=== PATIENT | female | born 1940 | race Caucasian/White ===

== ENCOUNTER 2020-02-13 17:35 | Inpatient (IN) | payer MEDICARE, OTHER ==
[~2020-02-13] VITALS: Ht 165.1 cm; Wt 54.4 kg
[2020-02-13 19:43] LABS: BASOPHILS ABSOLUTE AUTO 0.12 K/mm3 (0.00-0.23); BASOPHILS PERCENT AUTO 1 % (0-2); EOSINOPHILS ABSOLUTE AUTO 0.11 K/mm3 (0.00-0.68); EOSINOPHILS PERCENT AUTO 1 % (0-6); Hematocrit 34.6 % (33.0-51.0); Hemoglobin 11.1 g/dL (11.5-16.0); IMMATURE GRAN ABSOLUTE AUTO 0.08 K/mm3 (0.00-0.10); IMMATURE GRAN PERCENT AUTO 1 % (0-1); LYMPHOCYTES ABSOLUTE AUTO 2.34 K/mm3 (0.84-5.20); LYMPHOCYTES PERCENT AUTO 13 % (21-46); MONOCYTES PERCENT AUTO 11 % (4-13); Mean Corpuscular HGB 29.2 pg (26.0-34.0); Mean Corpuscular HGB Conc 32.1 g/dL (31.5-36.5); Mean Corpuscular Volume 91 fL (80-100); NEUTROPHILS ABSOLUTE AUTO 13.12 K/mm3 (1.96-9.15); NEUTROPHILS PERCENT AUTO 74 % (41-73); RDW Coefficient Variation 14.4 % (11.7-14.2); RDW Standard Deviation 48.1 fL (35.1-46.3); White Blood Cell Count 17.77 K/mm3 (4.00-11.30)
[2020-02-13 19:46] LABS: Platelet Count 36 K/mm3 (150-400)
[2020-02-13 19:51] LABS: International Normalized Ratio 0.97; Prothrombin Time Results 10.4 Sec (9.7-11.5)
[2020-02-13 19:54] LABS: Albumin, Blood 3.2 g/dL (3.4-5.0); Bilirubin, Total 0.4 mg/dL (0.1-1.0); Bun/Creatinine Ratio 28.4 (12.0-20.0); Calcium, Blood 8.8 mg/dL (8.5-10.1); Creatinine, Blood 1.62 mg/dL (0.40-1.00); Globulin, Blood 3.3 g/dL (2.2-4.0); Potassium, Blood 4.9 mmol/L (3.5-5.5); Total Protein, Blood 6.5 g/dL (6.4-8.2)
[2020-02-13] MEDS ORDERED: CYMBALTA60 MG PO (20:04)
[2020-02-13] MEDS ORDERED: NORCO PO (20:04)
[2020-02-13] MEDS ORDERED: GABA100 PO (20:05)
[2020-02-13] MEDS ORDERED: FUROSEMIDE40 MG PO (20:05)
[2020-02-13] MEDS ORDERED: SYNTHROID175 MC1 PO (20:05)
[2020-02-13] MEDS ORDERED: ROPINIROLE HCL0.5 MG PO (20:06)
[2020-02-13] MEDS ORDERED: LANTUS SOL100 UNIT/1 (20:06)
[2020-02-13 21:07] LABS: Thyroid Stimulating Hormone 0.653 uIU/mL (0.360-4.800)
[2020-02-13 22:13] LABS: Source, Urine Catheter
[2020-02-13 22:16] LABS: Bilirubin, Urine Neg (Neg); Blood, Urine 5+ (Neg); Glucose Qualitative, Urine Neg (Neg); Ketones, Urine Neg (Neg); Leukocyte Esterase, Urine Neg (Neg); Nitrite, Urine Neg (Neg); Protein, Urine 1+ (Neg); Specific Gravity, Urine 1.015 (1.003-1.022); Urobilinogen, Urine NORM (Normal)
[2020-02-13 22:19] LABS: Appearance, Urine Clear (Clear); Color, Urine Yellow (P-Yellow)
[2020-02-13 22:25] LABS: Bacteria Few /hpf; Hyaline Casts 0-2 /lpf (0-2); Squamous Epithelial Cells Not Seen /hpf (Few); White Blood Cells, Urine 0-2 /hpf (0-5)
[2020-02-13] MEDS ORDERED: HYDR1TAB94 PO (22:51)
[2020-02-13] MEDS ORDERED: PROMACTA PO (22:52)
[2020-02-13] MEDS ORDERED: BASAGLAR K100 UNIT/1 SC (22:53)
[2020-02-13] MEDS ORDERED: CICLODAN6.6 ML TOP (22:55)
[2020-02-13] MEDS ORDERED: Atarax10 MG PO (22:56)
[2020-02-13] MEDS ORDERED: INSULIN LI100 UNIT/6 SC (22:57)
[2020-02-13] MEDS ORDERED: ALBU90OI INH (22:58)
[2020-02-13] MEDS ORDERED: NITR.4SL SL (22:58)
[2020-02-13] MEDS ORDERED: METO25ER PO (22:59)
[2020-02-13] MEDS ORDERED: ANASTROZOLE1 M1 PO (22:59)
[2020-02-13] MEDS ORDERED: BUDE.25 INH (23:00)
[2020-02-13] MEDS ORDERED: ISODIN20 PO (23:00)
[2020-02-13] MEDS ORDERED: Brovana15 MCG/2 M INH (23:06)
[2020-02-13] MEDS ORDERED: ASCO500 PO (23:07)
[2020-02-14 04:40] LABS: BASOPHILS PERCENT AUTO 1 % (0-2); EOSINOPHILS ABSOLUTE AUTO 0.18 K/mm3 (0.00-0.68); EOSINOPHILS PERCENT AUTO 1 % (0-6); Hematocrit 33.1 % (33.0-51.0); Hemoglobin 10.3 g/dL (11.5-16.0); IMMATURE GRAN ABSOLUTE AUTO 0.05 K/mm3 (0.00-0.10); IMMATURE GRAN PERCENT AUTO 0 % (0-1); LYMPHOCYTES ABSOLUTE AUTO 3.73 K/mm3 (0.84-5.20); LYMPHOCYTES PERCENT AUTO 23 % (21-46); MONOCYTES ABSOLUTE AUTO 2.45 K/mm3 (0.16-1.47); MONOCYTES PERCENT AUTO 15 % (4-13); Mean Corpuscular HGB 28.5 pg (26.0-34.0); Mean Corpuscular HGB Conc 31.1 g/dL (31.5-36.5); Mean Corpuscular Volume 91 fL (80-100); NEUTROPHILS ABSOLUTE AUTO 9.64 K/mm3 (1.96-9.15); NEUTROPHILS PERCENT AUTO 60 % (41-73); RDW Coefficient Variation 14.4 % (11.7-14.2); RDW Standard Deviation 48.7 fL (35.1-46.3); Red Blood Cell Count 3.62 M/mm3 (3.80-5.20); White Blood Cell Count 16.15 K/mm3 (4.00-11.30)
[2020-02-14 04:55] LABS: Platelet Count 33 K/mm3 (150-400)
[2020-02-14 05:01] LABS: Albumin, Blood 3.1 g/dL (3.4-5.0); Albumin/Globulin Ratio 0.9 (0.8-1.8); Bilirubin, Total 0.5 mg/dL (0.1-1.0); Bun/Creatinine Ratio 26.2 (12.0-20.0); Calcium, Blood 8.4 mg/dL (8.5-10.1); Creatinine, Blood 1.72 mg/dL (0.40-1.00); Globulin, Blood 3.3 g/dL (2.2-4.0); Potassium, Blood 4.8 mmol/L (3.5-5.5); Total Protein, Blood 6.4 g/dL (6.4-8.2)
[2020-02-14 05:57] LABS: Influenza A, PCR Negative (NEGATIVE); Influenza B, PCR Negative (NEGATIVE); Resp Syncytial Virus, PCR Negative (NEGATIVE); SARS-Cov-2 (COVID-19) PCR, MMC Negative (NEGATIVE)
--- NOTE | 2020-02-14 07:47 | NUR ---
SHIFT SUMMARY PT NEW ADMIT THIS SHIFT. AAOX4. NPO. DISCOMFORT CONTROLLED WITH 25mcg FENTANYL X2 SINCE ADMISSION. NO NAUSEA/EMESIS. PT VERY DROWSY UPON ARRIVAL TO FLOOR, UNABLE TO COMPLETE ADMISSION HX. LEFT LEG SHORTENED, DENIES N/T BLE, MOVES TOES WELL + CAP REFILL BRISK. URENA CATHETER IN PLACE, DRAINING YELLOW. COVID SWAB COMPLETED THIS MORNING. SURGICAL PACKET ON FRONT OF CHART. ORTHO NOTIFIED OF CONSULT. PT RETURNED TO BED FROM X-RAY AT THIS TIME, RESTING POST PAIN MEDICATION WITH CALL LIGHT IN REACH.
--- NOTE | 2020-02-14 09:38 | NUR ---
SPOKE WITH DR. MARIE AND DIVYA AT ABOUT 0815 CONCERNING PT PLATLET COUNT. SEE NEW ORDERS
--- NOTE | 2020-02-14 12:29 | NUR ---
Patient confirms NPO status and agrees with scheduled surgery. PT HAS A UNIT OF PLATELETS IN BB. SPOKE TO DR STOKES WILL RETRIEVE NEEDED. UPDATED DR DOE REGARDING FINDINGS.
--- NOTE | 2020-02-14 13:55 | NUR ---
02/14/20 1355 Malik Meehan PATIENT ARRIVED TO OR WITH URENA CATH IN PLACE.
--- NOTE | 2020-02-14 16:21 | NUR ---
POST OP: REPORT RECEIVED FROM CLAIRE, LOADER HELPER. PT TO UNIT AT ABOUT 1530. UPON ASSESSMENT PT SEEMS ANXIOUS, IS ALERT ORIENTED TO PERSON AND THAT SHE HAD SURGERY. DISORIENTED TO TIME. PT IS VERY SHAKY, STATES THAT SHAKING IS BASELINE FOR HER. VS TAKEN, HR BOUNCES FROM 90'S TO 120'S TO 130'S. UPON ASCULTATION, HEART SOUNDS ARE IRREGULAR. PT DENIES CP/PRESSURE, DENIES ANY HISTORY OF ARRHYTHMIA. DR. MARIE NOTIFIED OF THIS, SEE NEW ORDERS. SURGICAL SITE WNL. PT COMPLAINED OF 8/10 PAIN, MEDICATED PER EMAR. WILL CTM
[2020-02-14 16:33] LABS: Creatinine, Blood 1.72 mg/dL (0.40-1.00)
[2020-02-14 17:46] LABS: BASOPHILS ABSOLUTE AUTO 0.08 K/mm3 (0.00-0.23); BASOPHILS PERCENT AUTO 1 % (0-2); EOSINOPHILS ABSOLUTE AUTO 0.14 K/mm3 (0.00-0.68); EOSINOPHILS PERCENT AUTO 1 % (0-6); Hematocrit 27.1 % (33.0-51.0); Hemoglobin 8.4 g/dL (11.5-16.0); IMMATURE GRAN ABSOLUTE AUTO 0.07 K/mm3 (0.00-0.10); IMMATURE GRAN PERCENT AUTO 0 % (0-1); LYMPHOCYTES ABSOLUTE AUTO 2.26 K/mm3 (0.84-5.20); LYMPHOCYTES PERCENT AUTO 13 % (21-46); MONOCYTES ABSOLUTE AUTO 2.34 K/mm3 (0.16-1.47); MONOCYTES PERCENT AUTO 14 % (4-13); Mean Corpuscular HGB 29.6 pg (26.0-34.0); Mean Corpuscular Volume 95 fL (80-100); Mean Platelet Volume 12.3 fL (9.1-12.4); NEUTROPHILS ABSOLUTE AUTO 12.46 K/mm3 (1.96-9.15); NEUTROPHILS PERCENT AUTO 72 % (41-73); Platelet Count 60 K/mm3 (150-400); RDW Coefficient Variation 14.4 % (11.7-14.2); RDW Standard Deviation 49.9 fL (35.1-46.3); Red Blood Cell Count 2.84 M/mm3 (3.80-5.20); White Blood Cell Count 17.35 K/mm3 (4.00-11.30)
--- NOTE | 2020-02-14 17:54 | NUR ---
SUMMARY: EKG COMPLETED, SHOWING SINUS TACH. CURRENTLY PT HR RANGES 90-100'S DR. MARIE AWARE. WILL CTM. PT OTHERWISE STABLE, MORE ORIENTED AT THIS TIME. KNOWS WHERE SHE IS AND THAT SHE HAD SURGERY. DOES SEEM FORGETFUL. BED ALARM ON FOR SAFETY. SURGICAL SITE WNL. PT ABLE TO TOLERATE ADA DIET, DENIES N/V. PT IS DROWSY, AND FALLS ASLEEP QUICKLY. AWAKENS EASILY TO VOICE. WILL CTM PT STATUS AND REPORT TO NOC RN.
--- NOTE | 2020-02-15 04:21 | NUR ---
PT WITH DIFFICULTY GETTING SOME OF HER WORDS OUT TONIGHT. PT REPORTED THIS BASELINE STATES SHE SOMETIMES STRUGGLES WITH WORDS AT HOME.PT IS UNABLE TO VERB HOW LONG THIS HAS BEEN GOING ON AT HOME, BUT STATES IT WORSENS INTERMITTENTLY.AT THIS TIME,PT SLOW TO GATHER YEAR OF WHICH I DID NOT NOTICE PRIOR. THIS APPEARS MORE PRONOUNCED AT THIS TIME,I CALLED DR SOTO AND ADVISED OF ABOVE.DR SOTO DCD NORCO AND SUBLIMAZE.TYLENOL FOR PAIN.
[2020-02-15 04:45] LABS: BASOPHILS PERCENT AUTO 1 % (0-2); EOSINOPHILS ABSOLUTE AUTO 0.09 K/mm3 (0.00-0.68); EOSINOPHILS PERCENT AUTO 1 % (0-6); Hematocrit 23.3 % (33.0-51.0); Hemoglobin 7.3 g/dL (11.5-16.0); IMMATURE GRAN ABSOLUTE AUTO 0.09 K/mm3 (0.00-0.10); IMMATURE GRAN PERCENT AUTO 1 % (0-1); LYMPHOCYTES ABSOLUTE AUTO 3.18 K/mm3 (0.84-5.20); LYMPHOCYTES PERCENT AUTO 17 % (21-46); MONOCYTES ABSOLUTE AUTO 2.38 K/mm3 (0.16-1.47); MONOCYTES PERCENT AUTO 13 % (4-13); Mean Corpuscular HGB 29.7 pg (26.0-34.0); Mean Corpuscular HGB Conc 31.3 g/dL (31.5-36.5); Mean Corpuscular Volume 95 fL (80-100); NEUTROPHILS ABSOLUTE AUTO 12.97 K/mm3 (1.96-9.15); NEUTROPHILS PERCENT AUTO 69 % (41-73); RDW Coefficient Variation 14.3 % (11.7-14.2); RDW Standard Deviation 49.2 fL (35.1-46.3); Red Blood Cell Count 2.46 M/mm3 (3.80-5.20); White Blood Cell Count 18.81 K/mm3 (4.00-11.30)
[2020-02-15 04:57] LABS: Platelet Count 28 K/mm3 (150-400)
[2020-02-15 05:08] LABS: Albumin, Blood 2.7 g/dL (3.4-5.0); Albumin/Globulin Ratio 0.9 (0.8-1.8); Bilirubin, Total 0.5 mg/dL (0.1-1.0); Calcium, Blood 7.6 mg/dL (8.5-10.1); Creatinine, Blood 1.83 mg/dL (0.40-1.00); Globulin, Blood 2.9 g/dL (2.2-4.0); Potassium, Blood 5.2 mmol/L (3.5-5.5); Total Protein, Blood 5.6 g/dL (6.4-8.2)
--- NOTE | 2020-02-15 07:42 | NUR ---
DR. MARIE MADE AWARE OF PT HGB AND PLATELET COUNT THIS MORNING. SEE NEW ORDERS.
[2020-02-15 12:45] LABS: BASOPHILS PERCENT AUTO 1 % (0-2); EOSINOPHILS ABSOLUTE AUTO 0.27 K/mm3 (0.00-0.68); EOSINOPHILS PERCENT AUTO 1 % (0-6); Hematocrit 25.9 % (33.0-51.0); Hemoglobin 8.2 g/dL (11.5-16.0); IMMATURE GRAN ABSOLUTE AUTO 0.09 K/mm3 (0.00-0.10); IMMATURE GRAN PERCENT AUTO 1 % (0-1); LYMPHOCYTES ABSOLUTE AUTO 3.22 K/mm3 (0.84-5.20); LYMPHOCYTES PERCENT AUTO 17 % (21-46); MONOCYTES ABSOLUTE AUTO 2.48 K/mm3 (0.16-1.47); MONOCYTES PERCENT AUTO 13 % (4-13); Mean Corpuscular HGB 28.5 pg (26.0-34.0); Mean Corpuscular HGB Conc 31.7 g/dL (31.5-36.5); NEUTROPHILS ABSOLUTE AUTO 12.57 K/mm3 (1.96-9.15); NEUTROPHILS PERCENT AUTO 67 % (41-73); RDW Coefficient Variation 16.3 % (11.7-14.2); RDW Standard Deviation 53.8 fL (35.1-46.3); Red Blood Cell Count 2.88 M/mm3 (3.80-5.20); White Blood Cell Count 18.73 K/mm3 (4.00-11.30)
[2020-02-15 12:55] LABS: Mean Corpuscular Volume 90 fL (80-100)
[2020-02-15 12:57] LABS: Platelet Count 26 K/mm3 (150-400)
--- NOTE | 2020-02-15 16:39 | NUR ---
SUMMARY: PT IS POD1 GAMMA NAILING OF L HIP. VSS, A/O X3. FORGETFUL AT TIMES AND NEEDS REORIENTED, SEEMS TO HAVE EXPRESSIVE APHASIA AT TIMES. FOLLOWS COMMANDS WELL. SURGICAL SITE WNL. PT RECIEVED 1 UNIT RBC'S TODAY, TOLERATED WELL. PT ABLE TO WORK WITH PHYSICAL THERAPY AND SAT UP IN RECLINER. PT VERY PAINFUL, SEE NEW ORDER. TELE STABLE, NO ACUTE CONCERNS AT THIS TIME. BED ALARM FOR SAFETY. WILL MONITOR AND REPORT TO SARA RN.
[2020-02-16 04:40] LABS: BASOPHILS ABSOLUTE AUTO 0.03 K/mm3 (0.00-0.23); BASOPHILS PERCENT AUTO 0 % (0-2); EOSINOPHILS ABSOLUTE AUTO 0.39 K/mm3 (0.00-0.68); EOSINOPHILS PERCENT AUTO 2 % (0-6); Hematocrit 23.7 % (33.0-51.0); Hemoglobin 7.5 g/dL (11.5-16.0); IMMATURE GRAN ABSOLUTE AUTO 0.08 K/mm3 (0.00-0.10); IMMATURE GRAN PERCENT AUTO 0 % (0-1); LYMPHOCYTES ABSOLUTE AUTO 2.79 K/mm3 (0.84-5.20); LYMPHOCYTES PERCENT AUTO 15 % (21-46); MONOCYTES ABSOLUTE AUTO 2.92 K/mm3 (0.16-1.47); MONOCYTES PERCENT AUTO 16 % (4-13); Mean Corpuscular HGB 28.5 pg (26.0-34.0); Mean Corpuscular HGB Conc 31.6 g/dL (31.5-36.5); Mean Corpuscular Volume 90 fL (80-100); NEUTROPHILS ABSOLUTE AUTO 12.32 K/mm3 (1.96-9.15); NEUTROPHILS PERCENT AUTO 66 % (41-73); RDW Coefficient Variation 16.4 % (11.7-14.2); RDW Standard Deviation 54.4 fL (35.1-46.3); Red Blood Cell Count 2.63 M/mm3 (3.80-5.20); White Blood Cell Count 18.53 K/mm3 (4.00-11.30)
[2020-02-16 04:47] LABS: Platelet Count 13 K/mm3 (150-400)
[2020-02-16 04:56] LABS: Bun/Creatinine Ratio 25.3 (12.0-20.0); Calcium, Blood 7.5 mg/dL (8.5-10.1); Creatinine, Blood 1.74 mg/dL (0.40-1.00); Potassium, Blood 4.3 mmol/L (3.5-5.5)
--- NOTE | 2020-02-16 07:35 | NUR ---
SUMMARY PT WITH CRITICAL PLATELETS THIS AM. EVEN LOWER THAN PRIOR CRITICAL. NOTIFIED DR SOTO.FOLLOW UP LABS AT 1000.
[2020-02-16 15:07] LABS: Hemoglobin 7.2 g/dL (11.5-16.0); Mean Corpuscular HGB 29.8 pg (26.0-34.0); Mean Corpuscular HGB Conc 32.7 g/dL (31.5-36.5); Mean Corpuscular Volume 91 fL (80-100); Mean Platelet Volume 12.5 fL (9.1-12.4); Platelet Count 61 K/mm3 (150-400); RDW Coefficient Variation 16.1 % (11.7-14.2); RDW Standard Deviation 53.4 fL (35.1-46.3); Red Blood Cell Count 2.42 M/mm3 (3.80-5.20); White Blood Cell Count 18.46 K/mm3 (4.00-11.30)
[2020-02-16 15:42] LABS: BASOPHILS PERCENT MAN 0 % (0-2); EOSINOPHILS ABSOLUTE MAN 0.55 K/mm3 (0.00-0.68); EOSINOPHILS PERCENT MAN 3 % (0-6); LYMPHOCYTES ABSOLUTE MAN 4.43 K/mm3 (0.84-5.20); LYMPHOCYTES PERCENT MAN 24 % (21-46); MONOCYTES ABSOLUTE MAN 2.03 K/mm3 (0.16-1.47); MONOCYTES PERCENT MAN 11 % (4-13); NEUTROPHILS ABSOLUTE MAN 11.44 K/mm3 (1.96-9.15); SEG NEUTROPHILS PERCENT MAN 62 % (41-73); TOTAL CELLS COUNTED 100
--- NOTE | 2020-02-16 17:39 | NUR ---
pt with tremors of upper extremities, denies any visual hallucinations at this time and states she does not see spiders on the ceiling. pt fearful and becomes anxious with attempts to reposition in bed and get oob. verbalized with pt deep breathing and relaxing shoulders with movement and pt becomes less anxious. pt dozes at times. pt voided after qiuroga removed
[2020-02-16 21:11] LABS: Hematocrit 23.2 % (33.0-51.0); Hemoglobin 7.4 g/dL (11.5-16.0)
[2020-02-17 04:43] LABS: BASOPHILS ABSOLUTE AUTO 0.04 K/mm3 (0.00-0.23); BASOPHILS PERCENT AUTO 0 % (0-2); EOSINOPHILS ABSOLUTE AUTO 0.59 K/mm3 (0.00-0.68); EOSINOPHILS PERCENT AUTO 3 % (0-6); Hematocrit 22.9 % (33.0-51.0); Hemoglobin 7.3 g/dL (11.5-16.0); IMMATURE GRAN ABSOLUTE AUTO 0.09 K/mm3 (0.00-0.10); IMMATURE GRAN PERCENT AUTO 1 % (0-1); LYMPHOCYTES ABSOLUTE AUTO 3.13 K/mm3 (0.84-5.20); LYMPHOCYTES PERCENT AUTO 17 % (21-46); MONOCYTES ABSOLUTE AUTO 2.55 K/mm3 (0.16-1.47); MONOCYTES PERCENT AUTO 14 % (4-13); Mean Corpuscular HGB 28.6 pg (26.0-34.0); Mean Corpuscular HGB Conc 31.9 g/dL (31.5-36.5); Mean Corpuscular Volume 90 fL (80-100); NEUTROPHILS ABSOLUTE AUTO 12.35 K/mm3 (1.96-9.15); NEUTROPHILS PERCENT AUTO 66 % (41-73); RDW Coefficient Variation 15.8 % (11.7-14.2); RDW Standard Deviation 52.5 fL (35.1-46.3); Red Blood Cell Count 2.55 M/mm3 (3.80-5.20); White Blood Cell Count 18.75 K/mm3 (4.00-11.30)
[2020-02-17 04:48] LABS: Mean Platelet Volume 13.5 fL (9.1-12.4)
--- NOTE | 2020-02-17 04:49 | NUR ---
SHIFT SUMMARY PT HAS BEEN ALERT, SEEMINGLY SLIGHTLY CONFUSED AT TIMES. BED ALARM ON. USING O2 NC TO MAINTAIN O2 SAT ABOVE 92%. TELE IN PLACE OVERNIGHT; HAS BEEN SR PER TUBE FILLER. IV FLUIDS INFUSING PER ORDERS OVERNIGHT. TAKING NORCO FOR PAIN. DRESSINGS TO L HIP CDI. TOLERATING PO INTAKE W/O NAUSEA AND VOIDING. PT RESTING WITH CALL LIGHT IN REACH.
[2020-02-17 04:50] LABS: Platelet Count 47 K/mm3 (150-400)
[2020-02-17 04:59] LABS: Bun/Creatinine Ratio 25.4 (12.0-20.0); Calcium, Blood 7.7 mg/dL (8.5-10.1); Creatinine, Blood 1.42 mg/dL (0.40-1.00); Potassium, Blood 4.9 mmol/L (3.5-5.5)
--- NOTE | 2020-02-17 12:39 | NUR ---
DR MARIE HERE TO SEE PT. REPORTS TO BLADDER SCAN PT. DISCUSSED PT'S CBG AND THAT PT REPORTED THAT SHE HAS NOT HAD BM IN THE LAST COUPLE OF DAYS. DISCUSSED WITH ROCK MASON APPRENTICE AND MECHANICAL SHOVEL OPERATOR.
--- NOTE | 2020-02-17 17:39 | NUR ---
PT VOIDED IN BSC. PT BLADDER SCAN 5 (FIVE) ML. PT BACK IN BED PER HER REQ. PT WISHED TO EAT IN BED WITH HOB BED ELEVATED. PT MED FOR PAIN 10/25. PT BEEN RESTING QUIETLY RESP E/U, WHEN NOT DISTURBED.
--- NOTE | 2020-02-17 17:51 | NUR ---
SHIFT SUMMARY PT EATING AND DRINKING, VOIDING. PT BEEN NAPPING WHEN NOT DISTURBED. PT BEEN ASSISTED WITH ADL'S PRN. PT BLADDER-SCAN AFTER VOID THIS EVENING WAS 5ML. PT BED ALARM IN PLACE. PAS IN PLACE. PT BEEN ENC OOB TODAY, PT WAS IN CHAIR EARLIER TODAY, THEN BACK TO BED.
--- NOTE | 2020-02-18 05:18 | NUR ---
SHIFT SUMMARY: JEANINE AROUSES EASILY AND RESPONDS APPROPRIATELY. SHE HAS REPORTED VISUAL AND AUDITORY HALLUCINATIONS. DRESSING TO LEFT HIP D&I. SHE DID HAVE A BOWEL MOVEMENT THIS SHIFT. SHE IS A TWO PERSON ASSIST TO THE BEDSIDE COMMODE. SHE IS TOLERATING PO INTAKE WELL. IV PATENT. ATTENDS IN PLACE. SHE IS CONTINENT OF BLADDER AND BOWEL. SHE IS LYING IN BED WITH HER CALL LIGHT IN REACH. WILL REPORT TO DAY SHIFT RN.
[2020-02-18 05:29] LABS: BASOPHILS ABSOLUTE AUTO 0.07 K/mm3 (0.00-0.23); BASOPHILS PERCENT AUTO 0 % (0-2); EOSINOPHILS ABSOLUTE AUTO 0.75 K/mm3 (0.00-0.68); EOSINOPHILS PERCENT AUTO 5 % (0-6); Hematocrit 26.2 % (33.0-51.0); Hemoglobin 8.3 g/dL (11.5-16.0); IMMATURE GRAN ABSOLUTE AUTO 0.08 K/mm3 (0.00-0.10); IMMATURE GRAN PERCENT AUTO 1 % (0-1); LYMPHOCYTES ABSOLUTE AUTO 2.29 K/mm3 (0.84-5.20); LYMPHOCYTES PERCENT AUTO 15 % (21-46); MONOCYTES PERCENT AUTO 14 % (4-13); Mean Corpuscular HGB 28.9 pg (26.0-34.0); Mean Corpuscular HGB Conc 31.7 g/dL (31.5-36.5); Mean Corpuscular Volume 91 fL (80-100); NEUTROPHILS PERCENT AUTO 66 % (41-73); Platelet Count 62 K/mm3 (150-400); RDW Coefficient Variation 15.3 % (11.7-14.2); RDW Standard Deviation 50.6 fL (35.1-46.3); Red Blood Cell Count 2.87 M/mm3 (3.80-5.20); White Blood Cell Count 15.69 K/mm3 (4.00-11.30)
[2020-02-18 05:41] LABS: Mean Platelet Volume 13.5 fL (9.1-12.4)
[2020-02-18 06:02] LABS: Bun/Creatinine Ratio 25.2 (12.0-20.0); Calcium, Blood 8.1 mg/dL (8.5-10.1); Creatinine, Blood 1.23 mg/dL (0.40-1.00); Potassium, Blood 5.3 mmol/L (3.5-5.5)
--- NOTE | 2020-02-18 07:57 | NUR ---
RT IN ROOM.
--- NOTE | 2020-02-18 08:06 | NUR ---
DR NOTIFIED OF PT HAVING HALLUCINATIONS LAST NIGHT AND THIS AM, REPORTS AWARE OF PT HAVING HALLUCINATIONS OFF AND ON. DR REPORTS WILL ASSESS MEDICATIONS. DR REPORTS TO CONT TO GIVE NARCOTIC PAIN MEDICATION SHE HAS BEEN PAINFUL WHEN NOT RECIEVING THE NARCOTIC PAIN MEDICATION. BED ALARM IN PLACE.
--- NOTE | 2020-02-18 09:35 | NUR ---
PT DENIES NEED FOR PAIN MEDICATION AT THIS TIME. PT REPORTS HALLUCINATIONS ARE DOING BETTER RIGHT NOW. BED ALARM IN PLACE.
--- NOTE | 2020-02-18 11:33 | NUR ---
DR MARIE HERE TO SEE PT. DISCUSSED PT'S STATUS INCLUDING CONFUSION AND HALLUCINATIONS OFF AND ON. PT PLEASANT AND COOPERATIVE AT THIS TIME.
--- NOTE | 2020-02-18 13:51 | NUR ---
DISCUSSED PT'S MEDICATIONS/HALLUCINATIONS WITH PHARMACY AND DR MARIE, SEE ORDERS.
--- NOTE | 2020-02-18 16:19 | NUR ---
SHIFT SUMMARY PT BEEN EATING AND DRINKING. PT S.L. THIS AFTERNOON. PT BEEN CONFUSED OFF AND ON TODAY. PT CURRENTLY HAS CHAIR AND TAB ALARM IN PLACE, BED ALARM ON WHILE IN BED. PT BEEN ASSISTED WITH ADL'S PRN. PT VOIDING AND HAD BM TODAY. DR MARIE BEEN IN TO SEE PT TODAY. PT BEEN UP TO CHAIR TODAY. PT CALL LIGHT IN REACH, USES AT TIMES. PT BEEN HAVING HALLUCINATIONS AT TIMES TODAY BUT HAS BEEN PLEASANT AND COOPERATIVE TODAY.
--- NOTE | 2020-02-18 23:20 | NUR ---
JEANINE IS DEMONSTRATING INCREASED CONFUSION, UNAWARE OF PLACE OR SITUATION. SHE IS ATTEMPTING TO GET OUT OF BED UNASSISTED AND "DRIVE HOME". SHE IS REFUSING TO GET BACK INTO BED AND REFUSING TO ALLOW STAFF TO ASSIST HER. SHE IS THREATENING TO HIT STAFF. ON-CALL PHYSICIAN CONTACTED, ORDER FOR UA AND TO DISCONTINUE SEROQUEL.
[2020-02-19 03:08] LABS: Source, Urine Clean Catch
[2020-02-19 03:14] LABS: Bilirubin, Urine Neg (Neg); Blood, Urine Neg (Neg); Glucose Qualitative, Urine Neg (Neg); Ketones, Urine Neg (Neg); Leukocyte Esterase, Urine 1+ (Neg); Nitrite, Urine Neg (Neg); Protein, Urine Neg (Neg); Urobilinogen, Urine NORM (Normal)
[2020-02-19 03:21] LABS: Appearance, Urine Clear (Clear); Color, Urine Yellow (P-Yellow)
[2020-02-19 03:42] LABS: Bacteria Few /hpf; Red Blood Cells, Urine Not Seen /hpf (0-2); Squamous Epithelial Cells Mod /hpf (Few)
[2020-02-19 05:06] LABS: BASOPHILS ABSOLUTE AUTO 0.06 K/mm3 (0.00-0.23); BASOPHILS PERCENT AUTO 0 % (0-2); EOSINOPHILS ABSOLUTE AUTO 0.65 K/mm3 (0.00-0.68); EOSINOPHILS PERCENT AUTO 4 % (0-6); Hematocrit 24.8 % (33.0-51.0); Hemoglobin 7.8 g/dL (11.5-16.0); IMMATURE GRAN ABSOLUTE AUTO 0.06 K/mm3 (0.00-0.10); IMMATURE GRAN PERCENT AUTO 0 % (0-1); LYMPHOCYTES ABSOLUTE AUTO 3.18 K/mm3 (0.84-5.20); LYMPHOCYTES PERCENT AUTO 22 % (21-46); MONOCYTES ABSOLUTE AUTO 2.21 K/mm3 (0.16-1.47); MONOCYTES PERCENT AUTO 15 % (4-13); Mean Corpuscular HGB 28.6 pg (26.0-34.0); Mean Corpuscular HGB Conc 31.5 g/dL (31.5-36.5); Mean Corpuscular Volume 91 fL (80-100); Mean Platelet Volume 12.5 fL (9.1-12.4); NEUTROPHILS ABSOLUTE AUTO 8.56 K/mm3 (1.96-9.15); NEUTROPHILS PERCENT AUTO 58 % (41-73); NRBC ABSOLUTE 0.02 K/mm3 (0.00-0.02); NRBC Auto 0.1 /100 WBC (0.0-0.2); Platelet Count 88 K/mm3 (150-400); RDW Coefficient Variation 15.1 % (11.7-14.2); RDW Standard Deviation 50.4 fL (35.1-46.3); Red Blood Cell Count 2.73 M/mm3 (3.80-5.20); White Blood Cell Count 14.72 K/mm3 (4.00-11.30)
--- NOTE | 2020-02-19 05:31 | NUR ---
SHIFT SUMMARY: JEANINE IS PLEASANTLY CONFUSED AND IMPULSIVE. VSS. SHE IS TOLERATING PO INTAKE WELL, ENCOURAGING FLUID INTAKE. SHE HAS BEEN UP TO THE BEDSIDE COMMODE. SHE HAS BEEN EXIT SEEKING THIS SHIFT. ATTENDS IN PLACE. SHE DOES HAVE SENSATION OF URGE TO GO. TELE IN PLACE. SHE IS UP TO THE CHAIR WITH HER CALL LIGHT IN REACH. SHE DOES NOT USE THE CALL LIGHT APPROPRAITELY. WILL REPORT TO DAY SHIFT RN.
--- NOTE | 2020-02-19 10:52 | NUR ---
DR. MARIE ROUNDED AT APPROXIMATELY 0910. PT COMPLAINED OF SHORTNESS OF BREATH THIS MORNING. PT APPEARS ANXIOUS AND HOLDS HER BREATH AT TIMES. LUNG SOUNDS ARE CLEAR. I&O APPEARS BALANCED. NO PITTING EDEMA OBSERVED. DR. MARIE NOTIFIED OF C/O SHORTNESS OF BREATH. PT DENIES CHEST PAIN.
[2020-02-19] MEDS ORDERED: DOCU100 PO (12:49)
[2020-02-19] MEDS ORDERED: VOLTAREN ARTHRI20 GM TOP (12:51)
[2020-02-19] MEDS ORDERED: CENTRUM SILVER1 EAC2 PO (12:58)
--- NOTE | 2020-02-19 18:59 | NUR ---
SHIFT SUMMARY PAIN HAS BEEN MANAGED WITH NORCO THIS SHIFT. PT HAS REMAINED CONFUSED AND REQUIRES REDIRECTION. PT HAS ALSO HAD VISUAL AND AUDITORY HALLUCINATIONS WHICH FAMILY REPORTS SHE HAS WHEN TAKING PAIN MEDIATION. PT TAKES NORCO AT HOME AT BASELINE, SHE IS GETTING NORCO IN THE HOSPITAL. SPOKE WITH PT'S DAUGHTER BETH REGARDING DISCHARGE PLANS. BED ALARM IN PLACE FOR SAFETY. PT WORKED WITH THERAPY TODAY AND HAS BEEN OOB TO AMBULATE MULTIPLE TIMES. VSS. WILL MONITOR UNTIL REPORT TO ONCOMING RN.
--- NOTE | 2020-02-20 05:00 | NUR ---
SHIFT SUMMNARY LYING IN SEMI FOWLERS WITH EYES CLOSED AND TV ON IN ROOM. HAS RESTED OFF AND ON THIS SHIFT. ORIENTED TO SELF, CONFUSION AND AUDITORY/VISUAL HALLUCINATIONS NOTED. IMPULSIVE AND HAS GOTTEN OOB SEVERAL TIMES CAUSING THE BED ALARM TO GO OFF. HAS BEEN REORIENTEABLE AT TIMES. EACH TIME SHE GETS OOB HAS BEEN OFFERED 5P'S, NEEDS MET. MEDICATED FOR PAIN X3 WITH PRN MEDS. ASSISTED WITH AMBULATION IN THE HALLWAY FOR TOTAL OF 50FT USING GB & FWW. NO SIGNIFICANT CHANGES THROUGH OUT SHIFT. DENIES PAIN, DISCOMFORT, OR FURTHER NEEDS AT THIS TIME. SAFETY MEASURES IN PLACE. WILL CONTINUE TO MONITOR.
[2020-02-20 05:04] LABS: BASOPHILS ABSOLUTE AUTO 0.06 K/mm3 (0.00-0.23); BASOPHILS PERCENT AUTO 1 % (0-2); EOSINOPHILS ABSOLUTE AUTO 0.71 K/mm3 (0.00-0.68); EOSINOPHILS PERCENT AUTO 6 % (0-6); Hematocrit 25.6 % (33.0-51.0); Hemoglobin 8.3 g/dL (11.5-16.0); IMMATURE GRAN ABSOLUTE AUTO 0.05 K/mm3 (0.00-0.10); IMMATURE GRAN PERCENT AUTO 0 % (0-1); LYMPHOCYTES ABSOLUTE AUTO 2.49 K/mm3 (0.84-5.20); LYMPHOCYTES PERCENT AUTO 19 % (21-46); MONOCYTES ABSOLUTE AUTO 1.92 K/mm3 (0.16-1.47); MONOCYTES PERCENT AUTO 15 % (4-13); Mean Corpuscular HGB 29.5 pg (26.0-34.0); Mean Corpuscular HGB Conc 32.4 g/dL (31.5-36.5); Mean Corpuscular Volume 91 fL (80-100); Mean Platelet Volume 12.2 fL (9.1-12.4); NEUTROPHILS ABSOLUTE AUTO 7.78 K/mm3 (1.96-9.15); NEUTROPHILS PERCENT AUTO 60 % (41-73); NRBC ABSOLUTE 0.03 K/mm3 (0.00-0.02); NRBC Auto 0.2 /100 WBC (0.0-0.2); Platelet Count 162 K/mm3 (150-400); RDW Coefficient Variation 14.9 % (11.7-14.2); RDW Standard Deviation 49.8 fL (35.1-46.3); Red Blood Cell Count 2.81 M/mm3 (3.80-5.20); White Blood Cell Count 13.01 K/mm3 (4.00-11.30)
[2020-02-20 05:21] LABS: Bun/Creatinine Ratio 29.3 (12.0-20.0); Calcium, Blood 8.4 mg/dL (8.5-10.1); Creatinine, Blood 1.47 mg/dL (0.40-1.00); Potassium, Blood 5.1 mmol/L (3.5-5.5)
--- NOTE | 2020-02-20 08:44 | NUR ---
LOW BLOOD GLUCOSE PT HAD LOW BLOOD GLUCOSE OF 69, SHE WAS ASYMPTOMATIC. PT TREATED WITH 4OZ OF ORANGE JUICE PER PROTOCOL.
--- NOTE | 2020-02-20 14:14 | NUR ---
REPORT CALLED TO [facility]. AWAITING TRANSPORT ARRIVAL FOR DISCHARGE.
--- NOTE | 2020-02-20 14:35 | NUR ---
DISCHARGE PT LEFT WITH [facility] AT APPROXIMATELY 1433. PT ALERT AND ORIENTED X3. PT WAS GIVEN PAIN MEDICATION PRIOR TO DISCHARGE. BLADDER SCAN SHOWED 358ML IN BLADDER. PT OFFERED TO USE THE BATHROOM BEFORE LEAVING, SHE WAS EDUCATED THAT THE DRIVE WOULD BE APPROXIMATELY 1 HOUR, PT DECLINED NEEDING THE RESTROOM. PT'S DAUGHTER WAS UPDATED THAT PT LEFT FOR THE REHAB FACILITY. PT'S BELONGINGS WERE RETURNED. VSS AT TIME OF DISCHARGE. DISCHARGE PACKED WITH PRESCRIPTION AND DRESSINGS PROVIDED.
== END 2020-02-20 14:33 | DRG 480 ==
LOC: ER 17:35 → SURS 20:19
PROVIDERS: Emergency Medicine; Internal Medicine; Orthopaedic Surgery; ADMIT Family Medicine
PROC: 0QS734Z Reposition Left Upper Femur with Internal Fixation Device, Percutaneous Approach (ICD-10-PCS; principal; 2020-02-14 12:15)
PROC: 30233N1 Transfusion of Nonautologous Red Blood Cells into Peripheral Vein, Percutaneous Approach (ICD-10-PCS; 2020-02-15)
DX: S72.142A Displaced intertrochanteric fracture of left femur, initial encounter for closed fracture (principal); G93.41 Metabolic encephalopathy; D62 Acute posthemorrhagic anemia; D69.3 Immune thrombocytopenic purpura; N17.9 Acute kidney failure, unspecified; E11.649 Type 2 diabetes mellitus with hypoglycemia without coma; Z66 Do not resuscitate; Z20.828 Contact with and (suspected) exposure to other viral communicable diseases; I12.9 Hypertensive chronic kidney disease with stage 1 through stage 4 chronic kidney disease, or unspecified chronic kidney disease; N18.30 Chronic kidney disease, stage 3 unspecified; E11.22 Type 2 diabetes mellitus with diabetic chronic kidney disease; D63.1 Anemia in chronic kidney disease; E11.40 Type 2 diabetes mellitus with diabetic neuropathy, unspecified; F03.90 Unspecified dementia, unspecified severity, without behavioral disturbance, psychotic disturbance, mood disturbance, and anxiety; I25.10 Atherosclerotic heart disease of native coronary artery without angina pectoris; E03.9 Hypothyroidism, unspecified; W19.XXXA Unspecified fall, initial encounter; F32.9 Major depressive disorder, single episode, unspecified; F41.9 Anxiety disorder, unspecified; R44.1 Visual hallucinations; F17.210 Nicotine dependence, cigarettes, uncomplicated; Y92.009 Unspecified place in unspecified non-institutional (private) residence as the place of occurrence of the external cause; Z95.5 Presence of coronary angioplasty implant and graft
CPT/HCPCS: 0241U; 36415; 36430; 71045; 73502; 73552; 80048; 80053; 81001; 82947; 84145; 84443; 85007; 85014; 85018; 85025; 85027; 85610; 85730; 86850; 86900; 86901; 86920; 87040; 93005; 93010; 94640; 94760; 96374; 97110; 97116; 97163; 97165; 97530; 99285-25; A9270; A9270-GY; C1713; C1769; J0690; J0696; J1630; J1940; J2370; J2704; J3010; J7030; J7120; P9016; P9035